=== PATIENT | male | born 1935 | race Caucasian/White ===

== ENCOUNTER 2023-04-21 13:43 | Inpatient (IN) | payer MEDICARE, BC ==
[~2023-04-21] VITALS: Ht 167.6 cm; Wt 94.4 kg
[~2023-04-21 13:43] MED LIST: BENA1TAB14 PO; CLOP75TA34 PO; HYDR-3136 PO; METO-395 PO
[2023-04-21] MEDS ORDERED: normal saline 1000ml 1,000 ML IV ONE ×2 (14:35→18:35)
[2023-04-21 15:13] LABS: BILIRUBIN,URINE NEGATIVE (Neg); CLARITY,URINE CLEAR (Clear); COLOR,URINE YELLOW (Yellow); GLUCOSE, URINE NEGATIVE (Neg); KETONES,URINE NEGATIVE (Neg); LEUKOCYTE ESTERASE ,URINE MODERATE (Neg); NITRITES, URINE NEGATIVE (Neg); OCCULT BLOOD,URINE MODERATE (Neg); PH,URINE 5.5 (4.8-8.0); PROTEIN,URINE NEGATIVE (Neg); UROBILINOGEN,URINE 0.2 E.U/dL (0.2-1.0)
[2023-04-21 15:20] LABS: UA COLLECTION TYPE CLN CATCH MIDSTREAM
[2023-04-21 15:22] LABS: BACTERIA,URINE FEW /HPF (Neg); MUCUS STRANDS FEW /LPF (Neg); SQUAMOUS EPITHELIAL CELL,UR MODERATE /LPF (FEW)
[2023-04-21 15:59] LABS: ALANINE AMINOTRANSFERASE 17 U/L (12-78); ALBUMIN 3.3 G/DL (3.4-5.0); ALKALINE PHOSPHATASE 89 IU/L (46-116); ANION GAP 6 (8-16); ASPARTATE AMINO TRANSFERASE 22 U/L (10-37); BLOOD UREA NITROGEN 58 MG/DL (7-18); BUN/CREATININE RATIO 43.9 (10.0-20.0); CALCIUM 9.6 MG/DL (8.5-10.1); CHLORIDE 105 MMOL/L (99-107); CREATININE 1.32 MG/DL (0.60-1.10); GLUCOSE 120 MG/DL (70-104); POTASSIUM 3.8 MMOL/L (3.5-5.1); SODIUM 138 MMOL/L (135-145); TOTAL CARBON DIOXIDE 26.7 MMOL/L (24-32); TOTAL PROTEIN 6.5 G/DL (6.4-8.2); eCRCL 31 ML/MIN; eGFR 51 ML/MIN
[2023-04-21 16:00] LABS: BASOPHILS % (AUTO) 0.1 % (0-1); EOSINOPHILS # (AUTO) 0.1 X10'3 (0-0.9); EOSINOPHILS % (AUTO) 0.4 % (0-6); HEMATOCRIT 30.1 % (42.0-52.0); HEMOGLOBIN 9.5 g/dl (14.0-17.9); LYMPHOCYTES # (AUTO) 1.2 X10'3 (1.1-4.8); LYMPHOCYTES % (AUTO) 6.3 % (21-51); MEAN CORPUSCULAR HEMOGLOBIN 20.4 PG (27.0-31.0); MEAN CORPUSCULAR HGB CONC 31.5 g/dL (33.0-36.5); MEAN CORPUSCULAR VOLUME 64.8 FL (78-98); MEAN PLATELET VOLUME 9.2 FL (7.4-10.4); MONOCYTES # (AUTO) 0.7 X10'3 (0-0.9); MONOCYTES % (AUTO) 3.8 % (2-12); NEUTROPHILS # (AUTO) 16.7 X10'3 (1.8-7.7); NEUTROPHILS % (AUTO) 89.4 % (42-75); PLATELET COUNT 155 X10'3 (140-440); RED BLOOD COUNT 4.65 X10'6 (4.70-6.10); RED CELL DISTRIBUTION WIDTH 15.8 % (11.5-14.5); WHITE BLOOD COUNT 18.7 X10'3 (4.5-11.0)
[2023-04-21 16:35] LABS: ELLIPTOCYTES FEW; HYPOCHROMASIA 1+; MICROCYTOSIS 2+; PLATELET ESTIMATE NORMAL; TEAR DROP CELLS FEW
[2023-04-21 16:36] LABS: SCHISTOCYTES FEW
[2023-04-21] MEDS ORDERED: haloperidol lactate 5mg/ml inj IM ONE ×2 (16:40→17:50)
--- NOTE | 2023-04-21 16:52 | NUR ---
patient pulled out his IV, the son was at bedside. Patient attempted to get out of bed not listening to the instruction, still disoriented. Received order to give Haldol 5 mg IV Addendum: 04/21/23 at 1653 by AAMIR Correction: Haldol 5 mg IM given not IV (typo error)
--- NOTE | 2023-04-21 18:04 | NUR ---
Patient lillian very agitated, trying to get out of bed multiple times, not listening, yelling and call me and other staff members "pain in the ass!". He was trying to grab one of the tech as well. Son was aware of this and agreed with the plan to apply wrist restraints for safety. Dr. Perez aware of this. Received order to give Ativan 1mg IM
[2023-04-21] MEDS ORDERED: LORazepam 2 mg/ml vial IM ONE (18:10)
[2023-04-21] MEDS ORDERED: CefTRIAXone/D5W-Rocephin 1gm 50 ML IV ONE (18:35)
[2023-04-21] MEDS ORDERED: azithromycin/NS 500mg/250ml 250 ML IV ONE (19:50)
[2023-04-21] MEDS ORDERED: acetaminophen 650mg rectal suppository RC ONE (21:10)
[2023-04-22] MEDS ORDERED: magnesium hydroxide 30ml (MOM) UD suspension PO PRN (00:05)
[2023-04-22] MEDS ORDERED: HYDROcodone/acetaminophen 5mg/325mg tablet PO PRN (00:05)
[2023-04-22] MEDS ORDERED: diphenhydrAMINE 50 mg/ml inj IV PRN (00:05)
[2023-04-22] MEDS ORDERED: ondansetron/PF 4mg/2ml inj IV PRN (00:05)
[2023-04-22] MEDS: normal saline 1000ml 1,000 ML IV SCH ×3 (00:05→16:31)
[2023-04-22] MEDS ORDERED: morphine 2 MG/ML inj. syringe IV PRN (00:05)
[2023-04-22] MEDS ORDERED: ipratropium/albuterol 3ml nebule NEB PRN (00:05)
[2023-04-22] MEDS ORDERED: mag hydrox/Alum hydrox/simeth 30ml oral suspension PO PRN (00:05)
[2023-04-22] MEDS ORDERED: acetaminophen 650mg rectal suppository RC PRN (00:05)
[2023-04-22] MEDS ORDERED: ondansetron 4mg rapidly disintigrating tab PO PRN (00:05)
[2023-04-22] MEDS ORDERED: acetaminophen 325mg tablet PO PRN ×2 (00:05)
[2023-04-22] MEDS ORDERED: diphenhydrAMINE 25mg capsule PO PRN (00:05)
[2023-04-22 00:57] VITALS: PULSE 64; RESP 16; O2SAT 96
[2023-04-22 01:10] LABS: HEMOGLOBIN A1C 4.8 % (4.5-6.2)
[2023-04-22 01:17] LABS: MAGNESIUM 2.3 MG/DL (1.5-2.4); PHOSPHORUS 2.3 MG/DL (2.3-4.5); PRO BRAIN NATRIURETIC PEPTIDE 521 PG/ML (0-450)
[2023-04-22] MEDS ORDERED: diazepam inj 5 MG/ML inj. IM STA (01:23)
[2023-04-22 03:19] LABS: APTT 34 SECONDS (22-32)
--- NOTE | 2023-04-22 04:10 | NUR ---
Pt right arm released from restraint to allow for range of motion. Pt supervised by sitter to avoid pulling at tubes. Pt rolled over onto his left side and fell asleep
[2023-04-22] MEDS: pantoprazole 40mg Tablet.DR PO SCH ×2 (07:30→08:09)
--- NOTE | 2023-04-22 07:40 | NUR ---
Noticed patient is off restraints. Patient asleep comfortably, no signs of distress.
[2023-04-22] MEDS: azithromycin/NS 500mg/250ml 250 ML IV SCH (08:00)
[2023-04-22] MEDS: docusate sod 100mg capsule PO SCH ×2 (08:00→20:27)
[2023-04-22] MEDS ORDERED: azithromycin/NS 500mg/250ml 250 ML IV SCH (08:00)
[2023-04-22] MEDS: heparin, porcine 5000 units/ml vial SQ SCH ×2 (08:06→20:27)
[2023-04-22] MEDS: CefTRIAXone/D5W-Rocephin 1gm 50 ML IV SCH (08:06)
--- NOTE | 2023-04-22 08:40 | NUR ---
Patient has been uncooperative with care, resisting being hooked to vital sign machine, take oral meds, or reposition. He states "leave me alone!" Patient becomes agitated when being bothered but calm when not being touched. Patient off wrist restraints
--- NOTE | 2023-04-22 11:27 | NUR ---
Patient attempted to pull his IV, trying to get out of bed, he was already at the end of the bed. Patient was not listening and following instructions. Assisted patient back to his bed, he was trying to pinch my hand. Patient was placed back on 2 point wrist restraints.
[2023-04-22] MEDS: diazepam inj 5 MG/ML inj. IV PRN ×3 (11:44→21:52)
--- NOTE | 2023-04-22 11:45 | NUR ---
Patient was screaming, cussing, and wanted to get out of bed. Patient very agitated. Valium 5 mg given as indicated. Criteria for wrist restraints discontinuation explained to patient
--- NOTE | 2023-04-22 12:48 | NUR ---
I just got back from lunch. Charge nurse Laura at bedside, placed patient on gown and pants. Wrist restraints off at this time.
--- NOTE | 2023-04-22 12:57 | NUR ---
Patient refused to eat his lunch
--- NOTE | 2023-04-22 13:11 | NUR ---
Patient back to being agitated again, trying to pull IV, uncooperative, and attempting to get out of bed. 2 point wrist restraints were placed back for safety.
--- NOTE | 2023-04-22 13:34 | NUR ---
Placed patient on hospital bed for comfort. Bed alarm turned on. side rails up and kept wrist restraints on.
--- NOTE | 2023-04-22 15:09 | NUR ---
Patient pulled out his IV. Dr. Nieves notified about this. She said its okay to leave the IV for now but need to retry in 1 hr as patient need IV antibiotic
[2023-04-22] MEDS ORDERED: haloperidol lactate 5mg/ml inj IM ONE (16:05)
--- NOTE | 2023-04-22 16:11 | NUR ---
Report was given to the charge nurse Kyrie, primary nurse not available for bedside report.
--- NOTE | 2023-04-22 16:31 | NUR ---
I called Dr. Nieves to let her know that patient has POLST form stating he is DNR. She said she will change the order
--- NOTE | 2023-04-22 16:35 | NUR ---
Called PCU, spoke to Elsi DAO to let the charge nurse Kyrie or Dhruv RN know that patient has POLST form stating he is DNR and that I spoke to Dr. Nieves about this. I left a message to let the nurse know patient will be DNR status
--- NOTE | 2023-04-22 17:03 | NUR ---
Arrived in room after discharge to patient with restraints on and IV pulled, patient was combative taking 2 people to hold down. Report given to charge at bedside, then passed on to me. Patient did not have IV at the time of arrival either. ER put IV in once delivered to floor. Then promptly after help with IV placement code status was finally addressed by ER nurse and DNR. This was a very unsafe transfer of patient due to lack of patients in ER and ER staff. The use of an unverified and non signed protocol was used to attempt this admit. Deysi DAO in ER is following a protocol that actually puts her at risk for patient abandonment.
[2023-04-22 18:00] VITALS: BP 161/73; PULSE 113; RESP 20; TEMP 99.1; O2SAT 92
--- NOTE | 2023-04-22 18:20 | NUR ---
Patient in room PCU 3015. I have received report from FELIBERTO Bartlett and had the opportunity to ask questions and assume patient care. Patient awake/restless and in soft wrist restraints. I will continue to monitor.
[2023-04-22 19:37] VITALS: PULSE 58; RESP 16; O2SAT 91
[2023-04-22 20:00] VITALS: RESP 21; O2SAT 90
[2023-04-22] MEDS ORDERED: temazepam 15mg capsule PO PRN (21:00)
[2023-04-22 22:00] VITALS: BP 144/68; PULSE 101; RESP 21; TEMP 98.4; O2SAT 90
[2023-04-23] VITALS (9 sets, daily range): BP systolic 94–190; BP diastolic 39–87; PULSE 76–110; RESP 14–28; TEMP 98.2–100; O2SAT 90–97
[2023-04-23] MEDS: diazepam inj 5 MG/ML inj. IV PRN ×3 (00:17→03:36)
[2023-04-23] MEDS: normal saline 1000ml 1,000 ML IV SCH ×2 (00:20→12:52)
--- NOTE | 2023-04-23 03:32 | NUR ---
Cld Dr. Merino as patient continues to be agitated with Valium 5mg Q2hrs, I suggested Haldol or Geodon but wants Valium 10mg given Q2hrs
[2023-04-23] MEDS ORDERED: ziprasidone IM 20mg inj **IM only IM ONE ×2 (05:10→20:10)
--- NOTE | 2023-04-23 05:10 | NUR ---
Patient still agitated and restless after Valium 10mg, I cld Dr. Merino and he suggested given him Valium every hour. I advised Valium is not working and requested Haldol or Geodon. Per MD give Geodon 20mg IM now.
--- NOTE | 2023-04-23 06:34 | NUR ---
Problems reprioritized. Patient report given, questions answered & plan of care reviewed with FELIBERTO Bartlett.
--- NOTE | 2023-04-23 06:36 | NUR ---
Patient in room PCU 3015. I have received report from Chloé DAO and had the opportunity to ask questions and assume patient care.
[2023-04-23 06:38] LABS: BASOPHILS % (AUTO) 0.3 % (0-1); EOSINOPHILS % (AUTO) 0 % (0-6); HEMATOCRIT 25.8 % (42.0-52.0); HEMOGLOBIN 8.2 g/dl (14.0-17.9); LYMPHOCYTES # (AUTO) 0.7 X10'3 (1.1-4.8); MEAN CORPUSCULAR HEMOGLOBIN 20.5 PG (27.0-31.0); MEAN CORPUSCULAR HGB CONC 31.9 g/dL (33.0-36.5); MEAN CORPUSCULAR VOLUME 64.3 FL (78-98); MEAN PLATELET VOLUME 10.3 FL (7.4-10.4); MONOCYTES # (AUTO) 0.8 X10'3 (0-0.9); MONOCYTES % (AUTO) 7.6 % (2-12); NEUTROPHILS # (AUTO) 9.6 X10'3 (1.8-7.7); NEUTROPHILS % (AUTO) 86.1 % (42-75); PLATELET COUNT 145 X10'3 (140-440); RED BLOOD COUNT 4.01 X10'6 (4.70-6.10); RED CELL DISTRIBUTION WIDTH 16.1 % (11.5-14.5); WHITE BLOOD COUNT 11.1 X10'3 (4.5-11.0)
[2023-04-23] MEDS: pantoprazole 40mg Tablet.DR PO SCH (07:30)
[2023-04-23] MEDS: azithromycin/NS 500mg/250ml 250 ML IV SCH (07:34)
[2023-04-23] MEDS: CefTRIAXone/D5W-Rocephin 1gm 50 ML IV SCH (07:34)
[2023-04-23 07:54] LABS: ALANINE AMINOTRANSFERASE 27 U/L (12-78); ALBUMIN 2.7 G/DL (3.4-5.0); ALBUMIN/GLOBULIN RATIO 0.9 (1.1-1.5); ALKALINE PHOSPHATASE 87 IU/L (46-116); ANION GAP 16 (8-16); ASPARTATE AMINO TRANSFERASE 69 U/L (10-37); BLOOD UREA NITROGEN 19 MG/DL (7-18); BUN/CREATININE RATIO 19.6 (10.0-20.0); CALCIUM 8.6 MG/DL (8.5-10.1); CHLORIDE 110 MMOL/L (99-107); CHOL/HDL RATIO 2.4 (0.00-4.99); CHOLESTEROL 117 MG/DL (0-200); CREATININE 0.97 MG/DL (0.60-1.10); GLUCOSE 108 MG/DL (70-104); HDL CHOLESTEROL 48 MG/DL (35-60); LDL CHOLESTEROL 59 MG/DL (50-100); POTASSIUM 3.6 MMOL/L (3.5-5.1); SODIUM 145 MMOL/L (135-145); TOTAL CARBON DIOXIDE 19.5 MMOL/L (24-32); TOTAL PROTEIN 5.8 G/DL (6.4-8.2); TRIGLYCERIDES 73 MG/DL (20-135); eCRCL 43 ML/MIN; eGFR 73 ML/MIN
[2023-04-23] MEDS: heparin, porcine 5000 units/ml vial SQ SCH ×3 (08:00→20:32)
[2023-04-23] MEDS: docusate sod 100mg capsule PO SCH ×2 (08:00→20:00)
[2023-04-23 10:40] LABS: ANISOCYTOSIS 1+; ELLIPTOCYTES 1+; MICROCYTOSIS 2+; PLATELET ESTIMATE NORMAL; SCHISTOCYTES FEW; TEAR DROP CELLS FEW
[2023-04-23 10:41] LABS: TARGET CELLS FEW
--- NOTE | 2023-04-23 13:27 | NUR ---
Initial: Pt admit for sepsis secondary to bilateral pneumonia and UTI, altered level of consciousness associated with agitation and delirium, metabolic encephalopathy, dementia, LISA, and hypoalbuminemia per H&P. Pt prior on a regular diet with documented 0% refused meal for first meal. Pt now on pureed diet thin liquids per USED EQUIPMENT SALES REPRESENTATIVE, pending PO intake. No BM yet this admit though on routine bowel care per EMR. Will monitor closely and make recommendations as appropriate. Recommendations: 1.Continue Pureed and thin liquid diet per USED EQUIPMENT SALES REPRESENTATIVE 2.Monitor PO intake and need for ONS 3.Routine bowel care 4.Scaled wt this admit;subsequent weekly scaled wts Addendum: 04/23/23 at [address] Amended: Links added.
[2023-04-23 14:44] LABS: BILIRUBIN,URINE NEGATIVE (Neg); CLARITY,URINE CLEAR (Clear); COLOR,URINE YELLOW (Yellow); GLUCOSE, URINE NEGATIVE (Neg); KETONES,URINE 40 mg/dl (Neg); LEUKOCYTE ESTERASE ,URINE NEGATIVE (Neg); NITRITES, URINE NEGATIVE (Neg); OCCULT BLOOD,URINE TRACE-INTACT (Neg); PROTEIN,URINE TRACE mg/dl (Neg)
[2023-04-23 14:55] LABS: UA COLLECTION TYPE STRAIGHT CATH
[2023-04-23 14:56] LABS: BACTERIA,URINE FEW /HPF (Neg); RBC,URINE 0-2 /HPF (0-2); SQUAMOUS EPITHELIAL CELL,UR FEW /LPF (FEW); WBC,URINE 0-4 /HPF (0-4)
--- NOTE | 2023-04-23 18:40 | NUR ---
Problems reprioritized. Patient report given, questions answered & plan of care reviewed with LUCIA DAO.
--- NOTE | 2023-04-23 18:42 | NUR ---
Patient in room PCU 3015. I have received report from FELIBERTO Bartlett and had the opportunity to ask questions and assume patient care. Patient is resting comfortably at this time, PCT is about to help patient eat dinner. I will continue to monitor.
--- NOTE | 2023-04-23 20:08 | NUR ---
Patient becoming violent and agitated again, tried hurting staff. I paged Dr. Almazan to possibly get Jovana ordered again sujata.
[2023-04-24] VITALS (10 sets, daily range): BP systolic 126–189; BP diastolic 77–82; PULSE 50–104; RESP 18–28; TEMP 98.4–100.9; O2SAT 90–98
[2023-04-24] MEDS: normal saline 1000ml 1,000 ML IV SCH ×2 (02:05→12:28)
[2023-04-24] MEDS: diazepam inj 5 MG/ML inj. IV PRN ×3 (05:07→17:17)
--- NOTE | 2023-04-24 06:17 | NUR ---
Problems reprioritized. Patient report given, questions answered & plan of care reviewed with FELIBERTO Ybarra.
[2023-04-24] MEDS: pantoprazole 40mg Tablet.DR PO SCH (07:30)
[2023-04-24 07:33] LABS: ABSOLUTE RETICS # 86500 /CUMM (23000-93000); BASOPHILS % (AUTO) 0.4 % (0-1); EOSINOPHILS % (AUTO) 0.2 % (0-6); HEMOGLOBIN 8.2 g/dl (14.0-17.9); LYMPHOCYTES # (AUTO) 0.8 X10'3 (1.1-4.8); LYMPHOCYTES % (AUTO) 7.7 % (21-51); MEAN CORPUSCULAR HEMOGLOBIN 20.3 PG (27.0-31.0); MEAN CORPUSCULAR HGB CONC 31.5 g/dL (33.0-36.5); MEAN CORPUSCULAR VOLUME 64.7 FL (78-98); MEAN PLATELET VOLUME 10.1 FL (7.4-10.4); MONOCYTES # (AUTO) 0.8 X10'3 (0-0.9); MONOCYTES % (AUTO) 8.4 % (2-12); NEUTROPHILS # (AUTO) 8.2 X10'3 (1.8-7.7); NEUTROPHILS % (AUTO) 83.3 % (42-75); PLATELET COUNT 165 X10'3 (140-440); RED BLOOD COUNT 4.02 X10'6 (4.70-6.10); RED CELL DISTRIBUTION WIDTH 16.4 % (11.5-14.5); RETICULOCYTE % (AUTO) 2.2 % (0.5-1.5); WHITE BLOOD COUNT 9.8 X10'3 (4.5-11.0)
--- NOTE | 2023-04-24 07:42 | NUR ---
Patient in room PCU 3015. I have received report from Chloé DAO and had the opportunity to ask questions and assume patient care.
[2023-04-24 07:44] LABS: ALANINE AMINOTRANSFERASE 32 U/L (12-78); ALBUMIN 2.4 G/DL (3.4-5.0); ALBUMIN/GLOBULIN RATIO 0.7 (1.1-1.5); ALKALINE PHOSPHATASE 82 IU/L (46-116); ANION GAP 13 (8-16); ASPARTATE AMINO TRANSFERASE 65 U/L (10-37); BILIRUBIN,TOTAL 1.5 MG/DL (0.1-1.0); BLOOD UREA NITROGEN 16 MG/DL (7-18); CALCIUM 8.5 MG/DL (8.5-10.1); CHLORIDE 112 MMOL/L (99-107); CREATININE 0.94 MG/DL (0.60-1.10); GLUCOSE 100 MG/DL (70-104); POTASSIUM 3.3 MMOL/L (3.5-5.1); SODIUM 144 MMOL/L (135-145); TOTAL CARBON DIOXIDE 19.4 MMOL/L (24-32); TOTAL PROTEIN 5.7 G/DL (6.4-8.2); eCRCL 44 ML/MIN; eGFR 76 ML/MIN
[2023-04-24] MEDS: amLODIPine 5mg tablet PO SCH (08:00)
[2023-04-24] MEDS ORDERED: clopidogrel 75mg tablet PO SCH (08:00)
[2023-04-24] MEDS ORDERED: non-formulary drug (Benazepril/Hydrochlorothiazide (Benazepril-Hctz 20-12.5 Mg Tab) 1 TAB) PO SCH (08:00)
[2023-04-24] MEDS: docusate sod 100mg capsule PO SCH ×2 (08:00→20:00)
[2023-04-24] MEDS ORDERED: metoprolol succinate 25mg (24-HOUR) SR. Tablet PO SCH (08:00)
[2023-04-24] MEDS ORDERED: hyDRALAzine 10mg tablet PO SCH (08:00)
[2023-04-24] MEDS: labetalol 100mg tablet PO SCH ×2 (08:00→20:00)
[2023-04-24 08:14] LABS: % IRON SATURATION 13 % (11-46); IRON 20 UG/DL (53-167); TOTAL IRON BINDING CAPACITY 159 UG/DL (259-388)
[2023-04-24] MEDS: heparin, porcine 5000 units/ml vial SQ SCH ×2 (11:08→20:42)
[2023-04-24] MEDS: CefTRIAXone/D5W-Rocephin 1gm 50 ML IV SCH (11:21)
[2023-04-24] MEDS: azithromycin/NS 500mg/250ml 250 ML IV SCH (12:02)
[2023-04-24] MEDS ORDERED: magnesium 2GM in 50ml NS 50 ML IV PRN (12:05)
[2023-04-24] MEDS ORDERED: potassium Cl 20 mEq SR tablet PO PRN ×2 (12:05)
[2023-04-24] MEDS ORDERED: magnesium Cl slow-release 64mg tablet PO PRN (12:05)
[2023-04-24] MEDS ORDERED: magnesium 4gm in 100ml NS 100 ML IV PRN (12:05)
[2023-04-24] MEDS: hydrALAZINE 20mg/ml inj. IV PRN (12:13)
[2023-04-24] MEDS ORDERED: FLUO40CA PO (12:33)
[2023-04-24] MEDS ORDERED: LORA-269 PO (12:33)
[2023-04-24] MEDS ORDERED: RIVA1PAT11 TOP (12:33)
[2023-04-24] MEDS ORDERED: BENA40TA90 PO (12:33)
[2023-04-24] MEDS ORDERED: MEMA28CA16 PO (12:33)
[2023-04-24] MEDS ORDERED: AZEL6DRO5 EACHEYE (12:33)
[2023-04-24 12:59] LABS: MAGNESIUM 1.9 MG/DL (1.5-2.4)
[2023-04-24] MEDS: potassium Cl 40MEQ/1/2NS 520ml 520 ML IV PRN (13:31)
--- NOTE | 2023-04-24 18:50 | NUR ---
Problems reprioritized. Patient report given, questions answered & plan of care reviewed with Alicia DAO, patient stable at transfer of care.
[2023-04-24] MEDS: K and/or MAG REPLACEMENT MC SCH (20:00)
[2023-04-24] MEDS ORDERED: LORazepam 1 MG tablet PO PRN (23:15)
[2023-04-24] MEDS: memantine 5mg tablet PO SCH (23:31)
[2023-04-25] VITALS (10 sets, daily range): BP systolic 109–162; BP diastolic 63–91; PULSE 60–91; RESP 19–24; TEMP 98–100; O2SAT 87–96
--- NOTE | 2023-04-25 00:52 | NUR ---
PT O2 STATS DROPPED DOWN TO HIGH 80'S ON 4 LITERS. BUMPED HIM UP TO 5 LITERS NOW SATTTING AT 95%
[2023-04-25] MEDS: normal saline 1000ml 1,000 ML IV SCH ×2 (01:34→14:54)
--- NOTE | 2023-04-25 06:12 | NUR ---
Problems reprioritized. Patient report given, questions answered & plan of care reviewed with FELIBERTO RAMON.
[2023-04-25] MEDS: CefTRIAXone/D5W-Rocephin 1gm 50 ML IV SCH (07:25)
[2023-04-25] MEDS: heparin, porcine 5000 units/ml vial SQ SCH ×2 (07:27→21:05)
[2023-04-25] MEDS: pantoprazole 40mg Tablet.DR PO SCH (07:30)
[2023-04-25 07:57] LABS: BASOPHILS % (AUTO) 0.4 % (0-1); EOSINOPHILS % (AUTO) 0.4 % (0-6); HEMATOCRIT 28.2 % (42.0-52.0); HEMOGLOBIN 8.8 g/dl (14.0-17.9); MEAN CORPUSCULAR HEMOGLOBIN 20.3 PG (27.0-31.0); MEAN CORPUSCULAR HGB CONC 31.1 g/dL (33.0-36.5); MEAN CORPUSCULAR VOLUME 65.3 FL (78-98); MONOCYTES # (AUTO) 0.9 X10'3 (0-0.9); MONOCYTES % (AUTO) 7.9 % (2-12); NEUTROPHILS # (AUTO) 9.1 X10'3 (1.8-7.7); NEUTROPHILS % (AUTO) 82.3 % (42-75); PLATELET COUNT 183 X10'3 (140-440); RED BLOOD COUNT 4.33 X10'6 (4.70-6.10); RED CELL DISTRIBUTION WIDTH 16.4 % (11.5-14.5); WHITE BLOOD COUNT 11.1 X10'3 (4.5-11.0)
[2023-04-25 08:00] LABS: ALANINE AMINOTRANSFERASE 32 U/L (12-78); ALBUMIN 2.3 G/DL (3.4-5.0); ALBUMIN/GLOBULIN RATIO 0.7 (1.1-1.5); ALKALINE PHOSPHATASE 90 IU/L (46-116); ANION GAP 12 (8-16); ASPARTATE AMINO TRANSFERASE 46 U/L (10-37); BILIRUBIN,TOTAL 1.1 MG/DL (0.1-1.0); BLOOD UREA NITROGEN 15 MG/DL (7-18); BUN/CREATININE RATIO 18.5 (10.0-20.0); CALCIUM 8.7 MG/DL (8.5-10.1); CHLORIDE 114 MMOL/L (99-107); CREATININE 0.81 MG/DL (0.60-1.10); GLUCOSE 103 MG/DL (70-104); MAGNESIUM 1.9 MG/DL (1.5-2.4); POTASSIUM 3.5 MMOL/L (3.5-5.1); SODIUM 144 MMOL/L (135-145); TOTAL CARBON DIOXIDE 18.5 MMOL/L (24-32); TOTAL PROTEIN 5.8 G/DL (6.4-8.2); eCRCL 51 ML/MIN; eGFR 90 ML/MIN
[2023-04-25] MEDS: labetalol 100mg tablet PO SCH ×2 (08:00→20:00)
[2023-04-25] MEDS: K and/or MAG REPLACEMENT MC SCH ×2 (08:00→20:00)
[2023-04-25] MEDS: rivastigmine 4.6mg/24 hour transdermal patch TOP SCH (08:00)
[2023-04-25] MEDS: amLODIPine 5mg tablet PO SCH (08:00)
[2023-04-25] MEDS: lisinopril 20mg tablet PO SCH (08:00)
[2023-04-25] MEDS: docusate sod 100mg capsule PO SCH ×2 (08:00→20:00)
[2023-04-25] MEDS: [UNRECOGNIZED DRUG - OTHER] EACHEYE SCH (08:00)
[2023-04-25] MEDS: FLUoxetine 20mg capsule PO SCH (08:00)
[2023-04-25] MEDS: memantine 5mg tablet PO SCH ×2 (08:00→20:00)
--- NOTE | 2023-04-25 09:29 | NUR ---
Malnutrition consult: Per RN malnutrition screen pt is unsure of wt loss and reports a decreased in appetite/PO intake. Per MD note on 04/24 pt is confused, agitated and speaking incoherently thus not appropriate for wt and intake hx interview at this time. Pt is now NPO per UX INTERACTION DESIGNER due to impaired cognition, coughing with liquids, and unsafe PO. Per H&P pt appears well developed well nourished. Pt with wt in EMR this admit of 58.64kg (129 pounds) is not a scaled wt and no recent wt hx in EMR to indicate recently wt loss. Additionally pt has no edema and no documented decreased in muscle strength per EMR. Pt does not meet a minimum of two malnutrition criteria at this time. Addendum: 04/25/23 at [address] Amended: Links added.
--- NOTE | 2023-04-25 09:43 | NUR ---
T/C: Per discussion with RN, physician is aware of pt's nutrition status and son whom is POAdrian is not agreeable to nutrition support for pt at this time. Per RN there is a plan for a family meeting today. Will continue to monitor. Addendum: 04/25/23 at [address] Amended: Links added.
[2023-04-25 09:52] LABS: ANISOCYTOSIS 1+; MICROCYTOSIS 2+; PLATELET ESTIMATE NORMAL
[2023-04-25 09:55] LABS: ELLIPTOCYTES 1+
[2023-04-25 09:56] LABS: BURR CELLS FEW; SCHISTOCYTES 1+
--- NOTE | 2023-04-25 15:33 | NUR ---
Dr. Dubon ordered for an NG tube to be placed per sons request for nutrition. During the procedure the patient refused, through garbled speech said no and tried to fight his way out of it. He was squirming and turning his head side to side. We also got resistance in both nostrils. Ultimately, we chose to stop, it did not feel ethical to continue with the NG tube insertion. I called the resident and let them know.
--- NOTE | 2023-04-25 18:25 | NUR ---
Problems reprioritized. Patient report given, questions answered & plan of care reviewed with Alicia DAO, patient stable at transfer of care.
[2023-04-25] MEDS ORDERED: ziprasidone IM 20mg inj **IM only IM ONE (22:05)
--- NOTE | 2023-04-25 22:31 | NUR ---
PT WAS YELLING AND WAS TRYING TO KICK ME IN THE HEAD. TOLD ME HE WAS GOING TO "KICK MY ASS". SPOKE TO DR GALLARDO WHO RENEWED THE RESTRAINT ORDER AND ORDERED 40 MG IM GEODON. Addendum: 04/26/23 at 0339 by Alicia Flowers RN DR GALLARDO ALSO ORDERED PT BE PLACED ON TELE.
[2023-04-26] VITALS (10 sets, daily range): BP systolic 126–169; BP diastolic 45–86; PULSE 61–95; RESP 16–22; TEMP 97.1–98.9; O2SAT 85–97
--- NOTE | 2023-04-26 01:12 | NUR ---
Per Dr. Wang give Minipress 1mg HS for agitation.
[2023-04-26] MEDS: normal saline 1000ml 1,000 ML IV SCH ×2 (04:14→04:59)
[2023-04-26 06:38] LABS: BASOPHILS % (AUTO) 0.3 % (0-1); EOSINOPHILS # (AUTO) 0.2 X10'3 (0-0.9); EOSINOPHILS % (AUTO) 2.3 % (0-6); HEMATOCRIT 24.2 % (42.0-52.0); HEMOGLOBIN 7.7 g/dl (14.0-17.9); MEAN CORPUSCULAR HEMOGLOBIN 20.5 PG (27.0-31.0); MEAN CORPUSCULAR HGB CONC 31.8 g/dL (33.0-36.5); MEAN CORPUSCULAR VOLUME 64.6 FL (78-98); MEAN PLATELET VOLUME 9.2 FL (7.4-10.4); MONOCYTES # (AUTO) 0.7 X10'3 (0-0.9); MONOCYTES % (AUTO) 7.6 % (2-12); NEUTROPHILS # (AUTO) 6.9 X10'3 (1.8-7.7); NEUTROPHILS % (AUTO) 78.8 % (42-75); PLATELET COUNT 176 X10'3 (140-440); RED BLOOD COUNT 3.75 X10'6 (4.70-6.10); RED CELL DISTRIBUTION WIDTH 15.8 % (11.5-14.5); WHITE BLOOD COUNT 8.8 X10'3 (4.5-11.0)
--- NOTE | 2023-04-26 06:53 | NUR ---
Problems reprioritized. Patient report given, questions answered & plan of care reviewed with FELIBERTO ANDERS. Addendum: 04/26/23 at 0658 by Alicia Flowers RN MARTITA MADE AWARE THAT URINE OUTPUT HAS SLOWED DOWN TODAY COMPARED TO YESTERDAY. UNABLE TO FIND BLADDER SCANNER AT THIS TIME TO CHECK BLADDER.
[2023-04-26 06:58] LABS: ALANINE AMINOTRANSFERASE 29 U/L (12-78); ALBUMIN/GLOBULIN RATIO 0.6 (1.1-1.5); ALKALINE PHOSPHATASE 80 IU/L (46-116); ANION GAP 8 (8-16); ASPARTATE AMINO TRANSFERASE 41 U/L (10-37); BILIRUBIN,TOTAL 0.7 MG/DL (0.1-1.0); BLOOD UREA NITROGEN 17 MG/DL (7-18); BUN/CREATININE RATIO 19.5 (10.0-20.0); CALCIUM 8.5 MG/DL (8.5-10.1); CHLORIDE 116 MMOL/L (99-107); CREATININE 0.87 MG/DL (0.60-1.10); GLUCOSE 95 MG/DL (70-104); MAGNESIUM 1.9 MG/DL (1.5-2.4); POTASSIUM 3.4 MMOL/L (3.5-5.1); SODIUM 147 MMOL/L (135-145); TOTAL CARBON DIOXIDE 22.8 MMOL/L (24-32); TOTAL PROTEIN 5.2 G/DL (6.4-8.2); eCRCL 48 ML/MIN; eGFR 83 ML/MIN
[2023-04-26] MEDS: pantoprazole 40mg Tablet.DR PO SCH (07:30)
[2023-04-26] MEDS: lisinopril 20mg tablet PO SCH (08:00)
[2023-04-26] MEDS: memantine 5mg tablet PO SCH ×2 (08:00→20:00)
[2023-04-26] MEDS: rivastigmine 4.6mg/24 hour transdermal patch TOP SCH (08:00)
[2023-04-26] MEDS: [UNRECOGNIZED DRUG - OTHER] EACHEYE SCH (08:00)
[2023-04-26] MEDS: labetalol 100mg tablet PO SCH ×2 (08:00→20:00)
[2023-04-26] MEDS: amLODIPine 5mg tablet PO SCH (08:00)
[2023-04-26] MEDS: FLUoxetine 20mg capsule PO SCH (08:00)
[2023-04-26] MEDS: docusate sod 100mg capsule PO SCH ×2 (08:00→20:00)
[2023-04-26] MEDS: K and/or MAG REPLACEMENT MC SCH ×2 (08:00→20:00)
[2023-04-26] MEDS: CefTRIAXone/D5W-Rocephin 1gm 50 ML IV SCH (08:27)
[2023-04-26 08:36] LABS: PLATELET ESTIMATE NORMAL; POIKILOCYTOSIS 2+
[2023-04-26 08:37] LABS: ANISOCYTOSIS 2+; MICROCYTOSIS 2+
[2023-04-26 08:38] LABS: ELLIPTOCYTES 1+
[2023-04-26] MEDS: potassium Cl 40MEQ/1/2NS 520ml 520 ML IV PRN (10:30)
[2023-04-26] MEDS: heparin, porcine 5000 units/ml vial SQ SCH ×2 (10:56→22:00)
--- NOTE | 2023-04-26 14:10 | NUR ---
Malnutrition consult: Pt continues NPO per BEAD WIRE TAPER since 04/24 due to "some coughing with thin liquids when taking larger amounts and then spitting out food due to confusion". Per physician note on 04/25 pt's son is agreeable to feeding tube. Though noted followed by RN note per EMR pt refused NG placement procedure "squirming and turning his head side to side, resistance in both nostrils" which ultimately resulted in stopping procedure due to ethical reasons, RN notified physician. Per RN malnutrition pt is unsure of wt loss and eating poorly for > 1 week. Pt is now with inadequate nutrition 4 days LOS. Per RN physical assessment pt does not have edema and has normal strength. Due to pt not appropriate for interview, unable to obtain wt and intake hx REGULATORY ANALYST. Scaled wt this admit of 94.4kg (208 pounds) with no prior recent wt hx in EMR thus unclear if wt loss has actually occurred. Noted per H&P pt appears well developed well nourished. Pt lacks a minimum of two malnutrition criteria at this time. No BM yet this admit and unable to receive bowel care due to NPO status per EMR. Will continue to follow and make recommendations as appropriate. Recommendations: 1.Continue NPO per BEAD WIRE TAPER; monitor medically ability to safely advance diet as tolerated if medically appropriate 2.Monitor need for nutrition support if within POC and ethical 3.Routine bowel care 4.Weekly scaled wts Addendum: 04/26/23 at [address] Amended: Links added.
[2023-04-26] MEDS: prazosin 1mg capsule PO SCH (21:00)
[2023-04-26] MEDS: hydrALAZINE 20mg/ml inj. IV PRN (22:31)
[2023-04-27] VITALS (10 sets, daily range): BP systolic 144–213; BP diastolic 60–95; PULSE 70–90; RESP 14–24; TEMP 97.5–99.8; O2SAT 90–96
[2023-04-27] MEDS: hydrALAZINE 20mg/ml inj. IV PRN (03:46)
--- NOTE | 2023-04-27 06:48 | NUR ---
Patient report given, questions answered & plan of care reviewed with FELIBERTO Altamirano
[2023-04-27 07:34] LABS: BASOPHILS # (AUTO) 0.1 X10'3 (0-0.2); BASOPHILS % (AUTO) 0.7 % (0-1); EOSINOPHILS # (AUTO) 0.2 X10'3 (0-0.9); EOSINOPHILS % (AUTO) 2.3 % (0-6); HEMATOCRIT 26.6 % (42.0-52.0); HEMOGLOBIN 8.4 g/dl (14.0-17.9); LYMPHOCYTES # (AUTO) 0.9 X10'3 (1.1-4.8); LYMPHOCYTES % (AUTO) 12.7 % (21-51); MEAN CORPUSCULAR HEMOGLOBIN 20.4 PG (27.0-31.0); MEAN CORPUSCULAR HGB CONC 31.6 g/dL (33.0-36.5); MEAN CORPUSCULAR VOLUME 64.6 FL (78-98); MEAN PLATELET VOLUME 9.8 FL (7.4-10.4); MONOCYTES # (AUTO) 0.6 X10'3 (0-0.9); MONOCYTES % (AUTO) 8.1 % (2-12); NEUTROPHILS # (AUTO) 5.4 X10'3 (1.8-7.7); NEUTROPHILS % (AUTO) 76.2 % (42-75); PLATELET COUNT 220 X10'3 (140-440); RED BLOOD COUNT 4.12 X10'6 (4.70-6.10); RED CELL DISTRIBUTION WIDTH 15.9 % (11.5-14.5); WHITE BLOOD COUNT 7.1 X10'3 (4.5-11.0)
[2023-04-27] MEDS: K and/or MAG REPLACEMENT MC SCH ×2 (08:00→20:00)
[2023-04-27] MEDS: FLUoxetine 20mg capsule PO SCH (08:00)
[2023-04-27] MEDS: docusate sod 100mg capsule PO SCH ×2 (08:00→19:55)
[2023-04-27] MEDS: amLODIPine 5mg tablet PO SCH (08:00)
[2023-04-27] MEDS: rivastigmine 4.6mg/24 hour transdermal patch TOP SCH (08:00)
[2023-04-27] MEDS: lisinopril 20mg tablet PO SCH (08:00)
[2023-04-27] MEDS: [UNRECOGNIZED DRUG - OTHER] EACHEYE SCH (08:00)
[2023-04-27] MEDS: heparin, porcine 5000 units/ml vial SQ SCH ×2 (08:00→19:55)
[2023-04-27 08:01] LABS: ANISOCYTOSIS 1+; ELLIPTOCYTES FEW; MICROCYTOSIS 2+; PLATELET ESTIMATE NORMAL; TARGET CELLS FEW; TEAR DROP CELLS FEW
[2023-04-27 08:25] LABS: ALANINE AMINOTRANSFERASE 34 U/L (12-78); ALBUMIN 2.2 G/DL (3.4-5.0); ALBUMIN/GLOBULIN RATIO 0.6 (1.1-1.5); ALKALINE PHOSPHATASE 86 IU/L (46-116); ANION GAP 12 (8-16); ASPARTATE AMINO TRANSFERASE 57 U/L (10-37); BILIRUBIN,TOTAL 0.9 MG/DL (0.1-1.0); BLOOD UREA NITROGEN 16 MG/DL (7-18); BUN/CREATININE RATIO 20.5 (10.0-20.0); CALCIUM 8.6 MG/DL (8.5-10.1); CHLORIDE 113 MMOL/L (99-107); CREATININE 0.78 MG/DL (0.60-1.10); GLUCOSE 90 MG/DL (70-104); MAGNESIUM 1.7 MG/DL (1.5-2.4); SODIUM 145 MMOL/L (135-145); TOTAL PROTEIN 5.6 G/DL (6.4-8.2); eCRCL 58 ML/MIN; eGFR > 90 ML/MIN
--- NOTE | 2023-04-27 08:45 | NUR ---
REPORTED CRITICAL LAB VALUE K 3.0 TO PRIMARY FELIBERTO ANDERS
[2023-04-27] MEDS: CefTRIAXone/D5W-Rocephin 1gm 50 ML IV SCH (10:07)
[2023-04-27] MEDS: potassium Cl 40MEQ/1/2NS 520ml 520 ML IV PRN (10:33)
[2023-04-27] MEDS: normal saline 1000ml 1,000 ML IV SCH ×2 (10:34→20:14)
[2023-04-27] MEDS: labetalol 100mg tablet PO SCH ×2 (12:12→19:54)
[2023-04-27] MEDS: pantoprazole 40mg Tablet.DR PO SCH (12:12)
[2023-04-27] MEDS: memantine 5mg tablet PO SCH ×2 (12:12→19:55)
[2023-04-27] MEDS: diazepam inj 5 MG/ML inj. IV PRN ×2 (14:43→20:05)
[2023-04-27] MEDS: prazosin 1mg capsule PO SCH (20:48)
[2023-04-28] VITALS (9 sets, daily range): BP systolic 133–166; BP diastolic 51–73; PULSE 64–88; RESP 12–21; TEMP 97.4–98.1; O2SAT 92–97
[2023-04-28] MEDS: diazepam inj 5 MG/ML inj. IV PRN ×2 (01:06→03:44)
[2023-04-28 07:07] LABS: BASOPHILS % (AUTO) 0.4 % (0-1); EOSINOPHILS # (AUTO) 0.1 X10'3 (0-0.9); EOSINOPHILS % (AUTO) 1.5 % (0-6); HEMATOCRIT 25.3 % (42.0-52.0); LYMPHOCYTES # (AUTO) 0.7 X10'3 (1.1-4.8); LYMPHOCYTES % (AUTO) 10.5 % (21-51); MEAN CORPUSCULAR HEMOGLOBIN 20.3 PG (27.0-31.0); MEAN CORPUSCULAR HGB CONC 31.4 g/dL (33.0-36.5); MEAN CORPUSCULAR VOLUME 64.4 FL (78-98); MEAN PLATELET VOLUME 9.8 FL (7.4-10.4); MONOCYTES # (AUTO) 0.5 X10'3 (0-0.9); MONOCYTES % (AUTO) 7.6 % (2-12); NEUTROPHILS # (AUTO) 5.4 X10'3 (1.8-7.7); PLATELET COUNT 228 X10'3 (140-440); RED BLOOD COUNT 3.93 X10'6 (4.70-6.10); RED CELL DISTRIBUTION WIDTH 15.8 % (11.5-14.5); WHITE BLOOD COUNT 6.8 X10'3 (4.5-11.0)
[2023-04-28] MEDS: pantoprazole 40mg Tablet.DR PO SCH (07:30)
[2023-04-28 07:32] LABS: ALANINE AMINOTRANSFERASE 32 U/L (12-78); ALBUMIN 2.2 G/DL (3.4-5.0); ALBUMIN/GLOBULIN RATIO 0.7 (1.1-1.5); ALKALINE PHOSPHATASE 84 IU/L (46-116); ANION GAP 10 (8-16); ASPARTATE AMINO TRANSFERASE 52 U/L (10-37); BILIRUBIN,TOTAL 0.8 MG/DL (0.1-1.0); BLOOD UREA NITROGEN 16 MG/DL (7-18); BUN/CREATININE RATIO 19.5 (10.0-20.0); CALCIUM 8.4 MG/DL (8.5-10.1); CHLORIDE 113 MMOL/L (99-107); CREATININE 0.82 MG/DL (0.60-1.10); GLUCOSE 109 MG/DL (70-104); MAGNESIUM 1.7 MG/DL (1.5-2.4); POTASSIUM 3.5 MMOL/L (3.5-5.1); SODIUM 144 MMOL/L (135-145); TOTAL CARBON DIOXIDE 20.7 MMOL/L (24-32); TOTAL PROTEIN 5.4 G/DL (6.4-8.2); eCRCL 55 ML/MIN; eGFR 88 ML/MIN
[2023-04-28] MEDS: K and/or MAG REPLACEMENT MC SCH ×2 (07:39→20:00)
[2023-04-28] MEDS: CefTRIAXone/D5W-Rocephin 1gm 50 ML IV SCH (07:47)
[2023-04-28] MEDS: [UNRECOGNIZED DRUG - OTHER] EACHEYE SCH (08:00)
[2023-04-28] MEDS: rivastigmine 4.6mg/24 hour transdermal patch TOP SCH (08:00)
[2023-04-28] MEDS: lisinopril 20mg tablet PO SCH (08:00)
[2023-04-28] MEDS: FLUoxetine 20mg capsule PO SCH (08:00)
[2023-04-28] MEDS: heparin, porcine 5000 units/ml vial SQ SCH ×2 (08:00→20:18)
[2023-04-28] MEDS: amLODIPine 5mg tablet PO SCH (08:00)
[2023-04-28] MEDS: docusate sod 100mg capsule PO SCH ×2 (08:00→20:18)
[2023-04-28] MEDS: labetalol 100mg tablet PO SCH ×2 (08:00→20:18)
[2023-04-28] MEDS: lactose-reduced food (Ensure Enlive) - 237ml bottle PO SCH ×3 (08:00→18:00)
[2023-04-28] MEDS: memantine 5mg tablet PO SCH ×2 (08:00→20:18)
[2023-04-28 08:03] LABS: ANISOCYTOSIS 1+; ELLIPTOCYTES FEW; MICROCYTOSIS 2+; PLATELET ESTIMATE NORMAL; POIKILOCYTOSIS FEW; TARGET CELLS FEW
--- NOTE | 2023-04-28 09:43 | NUR ---
Nutrition consult re: "picky eater likes mostly ensure, sweets, yogurt". Patient's diet was just advanced to pureed with nectar thick liquids starting lunch 04/[address] recs at f/u BSS. Pt eating poorly, documented with 0% PO intake of first two meals. Noted an Ensure Enlive TID was ordered, to begin at lunch today. Unfortunately [employer] is out of stock therefore unable to send ice cream on trays though d/w dietary to send yogurt BIDBL and pudding BIDLD. LBM 04/27 per I&O. Will continue to follow closely and make recommendations as appropriate. Recommendations: 1. Continue pureed diet with NTL per ST recs 2. Ensure Enlive TID, yogurt BIDBD, pudding BIDLD; initiate ice cream/shakes/smoothies if pt able to be on thin liquids 3. Encourage PO intake and assist with meals 4. Consider nutrition support if within POC and able to place NGT 5. Routine bowel care 6. Weekly scaled wts Addendum: 04/28/23 at [address] Amended: Links added.
--- NOTE | 2023-04-28 11:40 | NUR ---
F/u: Received TC from RN who reports patient's family states pt typically does not eat much food though consumes 5-6 ONS/day and family is bringing in ONS. JERALD d/w FELIBERTO current nutrition interventions and recommended allowing family bring in ONS though it MUST be thickened to nectar thick consistency prior to pt receiving it as pt on a pureed diet with nectar thick liquids per ST recs. Addendum: 04/28/23 at [address] Amended: Links added.
--- NOTE | 2023-04-28 13:05 | NUR ---
Sat patient up in bed, attempted to have patient drink ensure but patient was unable to draw up the straw. Patient was then given two spoonfuls of the ensure to moisten the mouth to possibly help patient in drawing the ensure up the straw. Patient did not swallow and it drained out of his mouth. Patient then rolled to the side and refused to try pudding at this time or ensure. Patient agreed to attempt to eat in a about 10-15 minutes.
[2023-04-28] MEDS: normal saline 1000ml 1,000 ML IV SCH ×2 (13:40→22:54)
--- NOTE | 2023-04-28 18:30 | NUR ---
Problems reprioritized. Patient report given, questions answered & plan of care reviewed with Rebeca UTILITY WORKER FORGE.
[2023-04-28] MEDS: prazosin 1mg capsule PO SCH (20:18)
[2023-04-29] VITALS (9 sets, daily range): BP systolic 140–177; BP diastolic 61–83; PULSE 62–82; RESP 14–21; TEMP 97–98.6; O2SAT 92–98
--- NOTE | 2023-04-29 06:46 | NUR ---
Problems reprioritized. Patient report given, questions answered & plan of care reviewed with Rebeca COMB CAPPER.
--- NOTE | 2023-04-29 07:00 | NUR ---
This RN has reviewed and agrees w/the ELECTROTYPER HELPER's physical assessment of this pt.
[2023-04-29] MEDS: pantoprazole 40mg Tablet.DR PO SCH (07:30)
[2023-04-29 07:32] LABS: ALANINE AMINOTRANSFERASE 41 U/L (12-78); ALBUMIN 2.1 G/DL (3.4-5.0); ALBUMIN/GLOBULIN RATIO 0.7 (1.1-1.5); ALKALINE PHOSPHATASE 86 IU/L (46-116); ANION GAP 8 (8-16); ASPARTATE AMINO TRANSFERASE 70 U/L (10-37); BILIRUBIN,TOTAL 0.6 MG/DL (0.1-1.0); BLOOD UREA NITROGEN 14 MG/DL (7-18); BUN/CREATININE RATIO 17.5 (10.0-20.0); CALCIUM 8.4 MG/DL (8.5-10.1); CHLORIDE 114 MMOL/L (99-107); GLUCOSE 91 MG/DL (70-104); POTASSIUM 3.3 MMOL/L (3.5-5.1); SODIUM 146 MMOL/L (135-145); TOTAL CARBON DIOXIDE 24.4 MMOL/L (24-32); TOTAL PROTEIN 5.3 G/DL (6.4-8.2); eCRCL 56 ML/MIN; eGFR > 90 ML/MIN
[2023-04-29 07:51] LABS: BASOPHILS # (AUTO) 0.1 X10'3 (0-0.2); BASOPHILS % (AUTO) 0.8 % (0-1); EOSINOPHILS # (AUTO) 0.2 X10'3 (0-0.9); HEMATOCRIT 26.1 % (42.0-52.0); HEMOGLOBIN 8.3 g/dl (14.0-17.9); LYMPHOCYTES % (AUTO) 17.3 % (21-51); MEAN CORPUSCULAR HEMOGLOBIN 20.5 PG (27.0-31.0); MEAN CORPUSCULAR HGB CONC 31.8 g/dL (33.0-36.5); MEAN CORPUSCULAR VOLUME 64.5 FL (78-98); MEAN PLATELET VOLUME 9.3 FL (7.4-10.4); MONOCYTES # (AUTO) 0.6 X10'3 (0-0.9); MONOCYTES % (AUTO) 10.7 % (2-12); NEUTROPHILS # (AUTO) 4.1 X10'3 (1.8-7.7); NEUTROPHILS % (AUTO) 67.2 % (42-75); PLATELET COUNT 233 X10'3 (140-440); RED BLOOD COUNT 4.06 X10'6 (4.70-6.10); RED CELL DISTRIBUTION WIDTH 15.8 % (11.5-14.5)
[2023-04-29] MEDS: rivastigmine 4.6mg/24 hour transdermal patch TOP SCH (08:00)
[2023-04-29] MEDS: FLUoxetine 20mg capsule PO SCH (08:00)
[2023-04-29] MEDS: lisinopril 20mg tablet PO SCH (08:00)
[2023-04-29] MEDS: labetalol 100mg tablet PO SCH ×2 (08:00→20:00)
[2023-04-29] MEDS: docusate sod 100mg capsule PO SCH ×2 (08:00→20:00)
[2023-04-29] MEDS: [UNRECOGNIZED DRUG - OTHER] EACHEYE SCH (08:00)
[2023-04-29] MEDS: amLODIPine 5mg tablet PO SCH (08:00)
[2023-04-29] MEDS: K and/or MAG REPLACEMENT MC SCH ×2 (08:00→20:00)
[2023-04-29] MEDS: memantine 5mg tablet PO SCH ×2 (08:00→20:00)
[2023-04-29] MEDS: lactose-reduced food (Ensure Enlive) - 237ml bottle PO SCH ×3 (08:00→18:00)
[2023-04-29] MEDS: CefTRIAXone/D5W-Rocephin 1gm 50 ML IV SCH (08:21)
--- NOTE | 2023-04-29 09:20 | NUR ---
Aayush Consult: Conrad Nash w/ skin intact per RN physical assessment. Addendum: 04/29/23 at [address] Amended: Links added.
[2023-04-29 09:44] LABS: BURR CELLS FEW; ELLIPTOCYTES 1+; HYPOCHROMASIA 1+; MICROCYTOSIS 2+; PLATELET ESTIMATE NORMAL; POLYCHROMASIA 1+; SCHISTOCYTES FEW; TARGET CELLS FEW; TEAR DROP CELLS 1+
[2023-04-29] MEDS: heparin, porcine 5000 units/ml vial SQ SCH ×2 (10:28→20:00)
[2023-04-29] MEDS ORDERED: magnesium 2GM in 50ml NS 50 ML IV PRN (10:50)
[2023-04-29] MEDS ORDERED: potassium Cl 20 mEq SR tablet PO PRN ×2 (10:50)
[2023-04-29] MEDS ORDERED: potassium Cl 40MEQ/1/2NS 520ml 520 ML IV PRN (10:50)
[2023-04-29] MEDS ORDERED: magnesium 4gm in 100ml NS 100 ML IV PRN (10:50)
[2023-04-29] MEDS: LORazepam 2 mg/ml vial IV PRN (14:50)
--- NOTE | 2023-04-29 15:26 | NUR ---
AGREE WITH BOAT ENGINES INSTALLER AM ASSESSMENT
[2023-04-29] MEDS: dextrose 5%-lactated ringers 1,000 ML IV SCH (16:20)
--- NOTE | 2023-04-29 18:28 | NUR ---
Problems reprioritized. Patient report given, questions answered & plan of care reviewed with Mt ABREU.
[2023-04-29] MEDS: prazosin 1mg capsule PO SCH (20:05)
[2023-04-30] VITALS (8 sets, daily range): BP systolic 142–167; BP diastolic 50–69; PULSE 54–68; RESP 14–20; TEMP 97.9–98.2; O2SAT 92–98
--- NOTE | 2023-04-30 00:45 | NUR ---
pt in upper restraint... nurse noticed pt was hunched over to one side without one restraint, he had pulled iv out with canula still in acting like a hose, when canula was removed and pressure applied there was a minimal amount of blood "loss", got pt cleaned and in clean linen, will attempt iv start later
[2023-04-30] MEDS: CefTRIAXone/D5W-Rocephin 1gm 50 ML IV SCH (07:21)
[2023-04-30] MEDS: heparin, porcine 5000 units/ml vial SQ SCH ×2 (07:22→20:00)
[2023-04-30] MEDS: docusate sod 100mg capsule PO SCH ×2 (07:22→20:00)
[2023-04-30] MEDS: memantine 5mg tablet PO SCH ×2 (07:22→20:00)
[2023-04-30] MEDS: amLODIPine 5mg tablet PO SCH (07:23)
[2023-04-30] MEDS: pantoprazole 40mg Tablet.DR PO SCH (07:23)
[2023-04-30] MEDS: lisinopril 20mg tablet PO SCH (07:23)
[2023-04-30] MEDS: labetalol 100mg tablet PO SCH ×2 (07:24→20:00)
[2023-04-30] MEDS: FLUoxetine 20mg capsule PO SCH (07:24)
[2023-04-30] MEDS: lactose-reduced food (Ensure Enlive) - 237ml bottle PO SCH ×3 (08:00→18:00)
[2023-04-30] MEDS: rivastigmine 4.6mg/24 hour transdermal patch TOP SCH (08:00)
[2023-04-30] MEDS: [UNRECOGNIZED DRUG - OTHER] EACHEYE SCH (08:00)
[2023-04-30] MEDS: K and/or MAG REPLACEMENT MC SCH ×2 (08:00→20:00)
[2023-04-30] MEDS: dextrose 5%-lactated ringers 1,000 ML IV SCH (09:50)
[2023-04-30] MEDS: LORazepam 2 mg/ml vial IV PRN (11:40)
[2023-04-30] MEDS ORDERED: POTASSIUM BICARB 20meq eff tab 20 MEQ TABLET.EFF PO PRN (12:15)
--- NOTE | 2023-04-30 12:50 | NUR ---
PRESSURE ULCER EDUCATION: DEFINITION: A pressure ulcer is an area of skin that breaks down when you stay in one position too long. The constant pressure against the skin reduces the blood flow to that area and the affected tissue dies. CAUSES: "Being bedridden or in a wheelchair "Fragile skin "Having a chronic condition, such as diabetes or vascular disease "Inability to move certain parts of your body without assistance "Older age "Incontinence of urine or stool SYMPTOMS: "A reddened area that DOES NOT turn white when pressed on - this can be the beginning of a pressure ulcer "A blister, deep sore or a crater - these can be advanced pressure ulcers FIRST AID: "Relieve the pressure on this area "Keep the area clean and dry "Call your primary doctor if you see any of the above symptoms "DO NOT massage the area "DO NOT use a donut shaped or ring shaped pillow- these actually interfere with the blood flow and cause complications PREVENTION: "Check for pressure ulcers everyday "Change position at least every two hours to relieve pressure "Use items that help relieve pressure- pillows, sheepskin, foam padding, and powders. "Keep skin clean and dry "Eat healthy well balanced meals "Exercise daily IF YOU SEE ANY OF THESE SYMPTOMS WHILE IN THE HOSPITAL - TELL YOUR NURSE IMMEDIATELY. IF YOU SEE ANY OF THESE SYMPTOMS WHILE AT HOME OR HAVE ANY QUESTIONS OR CONCERNS ABOUT PRESSURE ULCERS - CALL YOUR PRIMARY DOCTOR IMMEDIATELY. Addendum: 04/30/23 at 1251 by Noy Verma RN Amended: Links added.
--- NOTE | 2023-04-30 13:18 | NUR ---
Patient has a renewable order for restraints. Patient continuing with aggressive behavior. Called resident MARTI to inquire regarding renewal of restraint order and he stated he will put in the renewal order.
--- NOTE | 2023-04-30 14:12 | NUR ---
Patient's son is at bedside. He requested that his dad's ativan order be changed from 1mg to 2mg due to extreme aggitation. I called resident MARTI and made him aware of this request. Doc said he will put in an order for increased ativan and maybe valium.
[2023-04-30] MEDS ORDERED: LORazepam 2 mg/ml vial IV PRN (14:20)
--- NOTE | 2023-04-30 16:00 | NUR ---
F/u 04/30: Pt remains confused and combative AOx1 in restraints refusing all intake of meals per EMR. Pt drank 1 of past 7 Ensures approved for pureed/nectar thick diet but refusing to eat per NIBBLER OPERATOR note. Sepsis resolved per MD note today. Pt pending transfer to hospice care at facility tomorrow per EMR. Given now 8 days no nutrition intake and severe weakness pt meets severe malnutrition criteria; MD notified. LBM 04/29 receiving routine colace. Limited nutrition interventions at this time given POC. Will monitor for further nutrition intervention needs. Recommendations: 1. Continue pureed diet with NTL per ST recs; encourage PO feeder w/ meals 2. Ensure Enlive TID, yogurt BIDBD, pudding BIDLD; initiate ice cream/shakes/smoothies if pt able to be on thin liquids; allow ONS from home-needs to be thickened appropriately 3. EN nutrition support IF within pt POC; plans transfer to hospice 05/01 per EMR 4. Routine bowel care 5. Weekly scaled wts Addendum: 04/30/23 at [address] Amended: Links added.
--- NOTE | 2023-04-30 18:39 | NUR ---
Problems reprioritized. Patient report given, questions answered & plan of care reviewed with Mt.
[2023-04-30] MEDS: prazosin 1mg capsule PO SCH (21:00)
[2023-05-01 06:00] VITALS: BP 173/81; PULSE 59; RESP 16; TEMP 97.9; O2SAT 96
--- NOTE | 2023-05-01 06:45 | NUR ---
Patient in room PCU 3015. I have received report from Mt ABREU and had the opportunity to ask questions and assume patient care.
[2023-05-01] MEDS: CefTRIAXone/D5W-Rocephin 1gm 50 ML IV SCH (07:22)
[2023-05-01] MEDS: lisinopril 20mg tablet PO SCH ×2 (07:22→07:59)
[2023-05-01] MEDS: labetalol 100mg tablet PO SCH ×2 (07:22→07:59)
[2023-05-01] MEDS: amLODIPine 5mg tablet PO SCH ×2 (07:23→07:59)
[2023-05-01] MEDS: pantoprazole 40mg Tablet.DR PO SCH ×2 (07:23→07:30)
[2023-05-01] MEDS: memantine 5mg tablet PO SCH ×2 (07:23→07:58)
[2023-05-01] MEDS: FLUoxetine 20mg capsule PO SCH ×2 (07:23→07:59)
[2023-05-01] MEDS: [UNRECOGNIZED DRUG - OTHER] EACHEYE SCH (07:24)
[2023-05-01] MEDS: dextrose 5%-lactated ringers 1,000 ML IV SCH (07:24)
[2023-05-01] MEDS: docusate sod 100mg capsule PO SCH (07:24)
[2023-05-01 07:25] LABS: BASOPHILS % (AUTO) 0.7 % (0-1); EOSINOPHILS # (AUTO) 0.2 X10'3 (0-0.9); EOSINOPHILS % (AUTO) 2.7 % (0-6); HEMATOCRIT 26.5 % (42.0-52.0); HEMOGLOBIN 8.4 g/dl (14.0-17.9); LYMPHOCYTES # (AUTO) 1.4 X10'3 (1.1-4.8); LYMPHOCYTES % (AUTO) 22.9 % (21-51); MEAN CORPUSCULAR HEMOGLOBIN 20.4 PG (27.0-31.0); MEAN CORPUSCULAR HGB CONC 31.7 g/dL (33.0-36.5); MEAN CORPUSCULAR VOLUME 64.3 FL (78-98); MEAN PLATELET VOLUME 9.4 FL (7.4-10.4); MONOCYTES # (AUTO) 0.5 X10'3 (0-0.9); MONOCYTES % (AUTO) 8.5 % (2-12); NEUTROPHILS # (AUTO) 3.9 X10'3 (1.8-7.7); NEUTROPHILS % (AUTO) 65.2 % (42-75); PLATELET COUNT 256 X10'3 (140-440); RED BLOOD COUNT 4.12 X10'6 (4.70-6.10); RED CELL DISTRIBUTION WIDTH 15.8 % (11.5-14.5); WHITE BLOOD COUNT 5.9 X10'3 (4.5-11.0)
[2023-05-01] MEDS: heparin, porcine 5000 units/ml vial SQ SCH (07:26)
[2023-05-01 07:44] VITALS: PULSE 66; RESP 16
[2023-05-01 07:49] LABS: ALANINE AMINOTRANSFERASE 41 U/L (12-78); ALBUMIN 2.3 G/DL (3.4-5.0); ALBUMIN/GLOBULIN RATIO 0.7 (1.1-1.5); ALKALINE PHOSPHATASE 94 IU/L (46-116); ANION GAP 9 (8-16); ASPARTATE AMINO TRANSFERASE 49 U/L (10-37); BILIRUBIN,TOTAL 0.8 MG/DL (0.1-1.0); BLOOD UREA NITROGEN 11 MG/DL (7-18); BUN/CREATININE RATIO 14.1 (10.0-20.0); CALCIUM 8.7 MG/DL (8.5-10.1); CHLORIDE 108 MMOL/L (99-107); CREATININE 0.78 MG/DL (0.60-1.10); GLUCOSE 90 MG/DL (70-104); POTASSIUM 3.3 MMOL/L (3.5-5.1); SODIUM 142 MMOL/L (135-145); TOTAL CARBON DIOXIDE 24.6 MMOL/L (24-32); TOTAL PROTEIN 5.6 G/DL (6.4-8.2); eCRCL 58 ML/MIN; eGFR > 90 ML/MIN
[2023-05-01] MEDS: lactose-reduced food (Ensure Enlive) - 237ml bottle PO SCH ×2 (08:00→13:13)
[2023-05-01] MEDS: rivastigmine 4.6mg/24 hour transdermal patch TOP SCH (08:00)
[2023-05-01] MEDS: K and/or MAG REPLACEMENT MC SCH (08:00)
[2023-05-01 08:13] LABS: ELLIPTOCYTES FEW; HYPOCHROMASIA 1+; MICROCYTOSIS 2+; PLATELET ESTIMATE NORMAL
[2023-05-01 08:14] LABS: ACANTHOCYTES FEW; TEAR DROP CELLS FEW
[2023-05-01 11:00] VITALS: BP 144/40; PULSE 68; RESP 17; TEMP 96.3
--- NOTE | 2023-05-01 14:45 | NUR ---
Pt stable for d/c back to [facility] per hospitalist. PIV removed, cannula intact. Telemetry box previously discontinued. Printed discharge instructions provided to [facility] staff to give to [facility] staff. No prescription RX was provided to the patient. Pt was transported via [facility] [employer] by [employer] back to [facility].
== END 2023-05-01 14:20 | disposition hospice, home (50) | DRG 871 ==
LOC: ER 13:44 → ED HOLD 04-22 00:10 → PCU 3S 04-22 15:20
PROVIDERS: ADMIT Family Medicine; ATTEND Internal Medicine
DX: A41.9 Sepsis, unspecified organism (principal); G93.41 Metabolic encephalopathy; J18.9 Pneumonia, unspecified organism; J69.0 Pneumonitis due to inhalation of food and vomit; I50.32 Chronic diastolic (congestive) heart failure; I13.0 Hypertensive heart and chronic kidney disease with heart failure and stage 1 through stage 4 chronic kidney disease, or unspecified chronic kidney disease; N17.9 Acute kidney failure, unspecified; N39.0 Urinary tract infection, site not specified; D64.9 Anemia, unspecified; E88.09 Other disorders of plasma-protein metabolism, not elsewhere classified; R65.20 Severe sepsis without septic shock; F03.90 Unspecified dementia, unspecified severity, without behavioral disturbance, psychotic disturbance, mood disturbance, and anxiety; I25.10 Atherosclerotic heart disease of native coronary artery without angina pectoris; N40.0 Benign prostatic hyperplasia without lower urinary tract symptoms; N18.9 Chronic kidney disease, unspecified; Z79.02 Long term (current) use of antithrombotics/antiplatelets
CPT/HCPCS: 36415; 70450; 71045; 74176; 80053; 80061; 81001; 83036; 83540; 83550; 83605; 83735; 83880; 84100; 84145; 85008; 85025; 85045; 85610; 85730; 87040; 87088; 92508; 92616; 94760; 97161; 97530; 97535; 99285; A4349; A4615; A5200; A6212; A6213; A6250; A6258; A6446; C1758; G0378; J0360; J0456; J0696; J1630; J1644; J2060; J2270; J3360; J3480; J3486; J7030; J7121; Q0163